=== PATIENT | male | born 1950 | race Two or more races ===

== ENCOUNTER 2025-02-14 17:00 | Outpatient (RCR) | payer MEDICARE, MEDICAID, SELFPAY ==
--- NOTE | 2025-02-09 14:16 | PTNOTE_ITS ---
PT OP Initial Eval Patient Information Outpatient Physical Therapy Treatment Date: 02/09/25 Visit Reasons: Cerebrovascular accident Medical Diagnosis: I63.9 Treatment Dx #1: gait abnormality Treatment Dx #2: balance impairment Start of Care: 02/09/25 Date of Onset: 08/06/24 Smoking Status Smoking Status: Never smoker Initial Assessment Subjective: Pt is 75 yr old guinean speaking male with his sister presents in a W/C due to CVA this year. Since then he hasn't walked and he went to a rehab after being in the hospital. He lives alone when his sister isn't here to help take care of him and she helps him with all ADL's and cooking. PLOF: pt was independent with mobility in the community with a cane. PMH: DM, HTN, high cholesterol Pt goal: to be able to walk and do more ADL's. Objective: Sit to stand transfers: modAx1 with hands on parallel bars B LE strength: Quads: 4-/5 HS: 4-/5 Hip adduction: 4-/5 Hip abduction: 4-5 Gait: small steps with hands on bars and minAx1 Air Tube Releaser strength: R: 25 lbs, L: 15 lbs Assessment: Pt presents with slightly decreased L trials manager strength compared to the R and LE quad strength is symmetrical. He has decreased LE strength and transfers with modAx1 in the bars and can ambulate a few feet but needs assist for safety. Pt requires skilled therapy and has fair rehab potential to meet goals. Short Term and Retail Loss Prevention Specialist Goals 1. Independent with HEP ? 2. Pt will transfer from W/C to standing in parallel bars with CGA ? 3. Pt will ambulate x40' in the bars with hand support and CGA 4. Improved quad strength to 4/5 B ? Treatment Plan 1. Manual therapy ? 2. Therex ? 3. Modalities as indicated, moist heat, ice, TENS 4. Gait training 5. NMR Frequency and Duration: 1-2x a week for 12 sessions plus the evaluation Certification Dates: 02/09/25 to 05/10/25 Procedure Charges OP PT Eval Mod Complex 30 minutes: Yes
--- NOTE | 2025-02-14 18:27 | PT.ODAYNRPT ---
PT Outpatient Daily Note OP Daily Note Outpatient Physical Therapy Treatment Date: 02/14/25 Visit Reasons: Cerebrovascular accident Subjective: Same as time of evaluation Objective: See F/S for therex Assessment: Pt transferred from W/C to bike with modAx2 and requires cues for safety. He ambulated in the parallel bars with some unsteadiness that PT corrected with gait belt. Plan: Continue per POC Length of Time (minutes) of Treatment: 30 Minutes Procedure Charges Therapeutic Exercise 30 minutes: Yes
== END 2025-02-23 23:59 | disposition home or self-care (01) ==
LOC: CPTX 17:00
PROVIDERS: PCP Family Medicine; Referring Provider Family Medicine; Visit Provider Family Medicine
DX: I69.398 Other sequelae of cerebral infarction (principal); R26.89 Other abnormalities of gait and mobility; I10 Essential (primary) hypertension; E11.9 Type 2 diabetes mellitus without complications; Z60.2 Problems related to living alone
CPT/HCPCS: 97110; 97162